=== PATIENT | male | born 1995 | race Caucasian/White ===

== ENCOUNTER 2022-08-02 16:50 | Emergency (ER) | payer OTHER, SELFPAY ==
[2022-08-02 16:54] VITALS: BP 152/53; PULSE 68; RESP 20; TEMP 36.7; O2SAT 98
--- NOTE | 2022-08-02 16:55 | ED.URI ---
HPI - URI/Sore Throat General Chief Complaint: Upper Respiratory Infection Stated Complaint: flu symptoms Time Seen by Provider: 08/02/22 16:55 Source: patient and RN notes reviewed History of Present Illness HPI Narrative: Patient is a 26-year-old male who presents to the Urgent Care with complaints of a headache. Patient states he has also had several bowel movements today but nothing like diarrhea. 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 Patient states that he has tried ibuprofen without success. No other acute complaints. No acute distress noted. Patient aware of the plan of care. Some parts of this dictation were generated by voice recognition software and may contain typographical and/or grammatical inaccuracies. Related Data Home Medications Medication Instructions Recorded Confirmed No Home Medications 08/02/22 08/02/22 Allergies Allergy/AdvReac Type Severity Reaction Status Date / Time Penicillins Allergy Unknown Verified 08/02/22 16:59 Review of Systems Review of Systems: CONSTITUTIONAL: Denies fever, chills, or sweats. EYES: Denies visual changes, redness, or discharge. ENT: Denies rhinorrhea, congestion, sore throat, or otalgia. CARDIOVASCULAR: Denies chest pain, palpitations, or edema. RESPIRATORY: Denies cough or dyspnea. GASTROINTESTINAL: Denies abdominal pain, nausea, vomiting, or diarrhea. GENITOURINARY: Denies dysuria or hematuria. SKIN: Denies rash or itching. MUSCULOSKELETAL: Denies back pain, joint pain, or myalgia. NEUROLOGIC: Reports of a headache All other systems reviewed are negative, except as documented in HPI. PMFSH Comments At the time of my signature, I reviewed and agree with the nursing past medical, surgical, social, and family history. There is no relevant family history pertinent to the patient complaint. Exam Narrative: GENERAL: This is a well-nourished, well-developed patient, in no apparent distress. HEAD: normocephalic, atraumatic. EYES: PERRL. Sclera clear/white. Vision is grossly intact. EARS: External ears normal, auditory canals clear and without drainage, TMs normal without perforation. Hearing grossly intact. NOSE: External nose normal with no obvious nasal discharge, nares without redness, no rhinorrhea. THROAT: Mucous membranes moist, posterior pharynx clear. NECK: Neck supple CARDIOVASCULAR: Regular rate and rhythm RESPIRATORY: Clear to auscultation. Breath sounds equal bilaterally. No wheezes, rales, or rhonchi. GASTROINTESTINAL: Abdomen soft, non-tender, nondistended. Bowel sounds are active. SKIN: warm, intact with no suspicious lesions or rash, good texture and turgor. NEURO: awake, alert, and oriented to person, place and time. There were no obvious focal neurologic abnormalities. EXTREMITIES: No clubbing, cyanosis, or edema. Course Course Level of Care: Express Care Visit Vital Signs Vital signs: Vital Signs Temperature 98.0 F 08/02/22 16:54 Pulse Rate 68 08/02/22 16:54 Respiratory Rate 20 08/02/22 16:54 Blood Pressure 152/53 H 08/02/22 16:54 Pulse Oximetry 98 08/02/22 16:54 Oxygen Delivery Room Air 08/02/22 16:54 Temperature 98.0 F 08/02/22 16:54 Pulse Rate 68 08/02/22 16:54 Respiratory Rate 20 08/02/22 16:54 Blood Pressure 152/53 H 08/02/22 16:54 Pulse Oximetry 98 08/02/22 16:54 Oxygen Delivery Room Air 08/02/22 16:54 Reviewed- Patient is informed that they may have pre-hypertension or hypertension based on a blood pressure reading in the department. I recommend the patient call the primary care provider listed on their discharge instructions or a physician of their choice this week to arrange follow-up for further evaluation of possible pre-hypertension or hypertension. MDM - URI/Sore Throat MDM Narrative Medical decision making narrative: Advised patient to use
== END 2022-08-02 17:18 | disposition home or self-care (01) ==
PROVIDERS: Emergency Provider Nurse Practitioner Family
DX: R51.9 Headache, unspecified (principal)
CPT/HCPCS: 99202; G0463

== ENCOUNTER 2025-02-12 19:43 | Emergency (ER) | payer OTHER, SELFPAY ==
--- NOTE | ~2025-02-12 | XR_ITS ---
HISTORY: punched a wall, pain medial hand/wrist COMPARISON: None TECHNIQUE: 3 views of the right hand were performed. FINDINGS: No acute fracture is identified. The joint spaces are preserved. The carpal arcs are intact. Mild radiocarpal joint space narrowing with sclerosis of the distal radius is present. Bone mineralization is unremarkable. No significant soft tissue swelling. No radiopaque foreign body is identified. IMPRESSION: No acute fracture or dislocation within the right hand, as detailed above. Reviewed, dictated and finalized at location A.
--- NOTE | ~2025-02-12 | XR_ITS ---
HISTORY: punched a wall, pain medial hand/wrist COMPARISON: None TECHNIQUE: 3 views of the right wrist were performed. FINDINGS: Better seen on the dedicated wrist examination is a possible avulsion fracture of the distal ulnar ma rgin of the hamate bone with adjacent soft tissue swelling. No additional acute fractures are present. The carpal arcs are otherwise intact. Mild radiocarpal joint space narrowing with sclerosis of the distal radius is present. The remaining visualized joint spaces are otherwise preserved. IMPRESSION: Better seen on the dedicated wrist examination is a possible avulsion fracture of the distal ulnar ma rgin of the hamate bone with adjacent soft tissue swelling. Reviewed, dictated and finalized at location A. IMPRESSION: Better seen on the dedicated wrist examination is a possible avulsion fracture of the distal ulnar margin of the hamate bone with adjacent soft tissue melina zee
--- OUTSIDE RECORDS SUMMARY | 2025-02-12 19:46 | XMS_ITS | Clinical Summary ---
Author Organization [facility] Address [address] [place] [address] Care Team Providers Care Staff Electronic Warfare Officer Name Role Phone No, Physician Primary Care Provider [phone] Allergies Active Allergy Reactions Criticality Noted Date Comments Penicillins Unknown 01/08/2022 Medications mupirocin (BACTROBAN) 2 % ointmentIndicat ions:Abrasion Apply topically 2 (two) times a day 22 g Active Additional Information Patient not taking.Reported on 01/07/2025 Active Problems No known active problems Resolved Problems Problem Noted Date Diagnosed Date Resolved Date Appendicitis 01/08/2022 01/26/2022 Encounters Date Type Department Care Team Description 01/07/2025 3:15 PM CDT Office Visit [facility] [place] [address] [place] [address] Deena Madrigal MD Abdominal pain (Primary Dx) from Last 3 Months Surgical History Surgery Date Site/Laterality Comments TONSILLECTOMY APPENDECTOMY 01/08/2022 Medical History Medical History Date Comments PONV (postoperative nausea and vomiting) GERD (gastroesophageal reflux disease) Social History Tobacco Use Types Packs/Day Years Used Date Smoking Tobacco: Every Day Cigarettes 0.5 7 Smokeless Tobacco: Never Tobacco Cessation:Ready to Q uit: Not Asked; Counseling Given: Not Answered Alcohol Use Standard Drinks/Week Comments Not Currently 0 (1 standard drink = 0.6 oz pur e alcohol) AUDIT-C Answer Date Recorded Q1: How often do you have a drink containing alcohol? Never 01/08/2022 Q2: How many drinks containi ng alcohol do you have on a typical day when you are drinking? Patient does not drink Q3: How often do you have si x or more drinks on one occasion? 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 Gender Identity Not on file Sexual Orientation Not on file Obstetrics History Last Filed Vital Signs Vital Sign Reading Time Taken Comments Blood Pressure 116/82 01/07/2025 3:14 PM CDT Pulse 73 01/07/2025 3:14 PM CDT Temperature 36.4 C (97.5 F) 01/07/2025 3:14 PM CDT Respiratory Rate 16 01/07/2025 3:14 PM CDT Oxygen Saturation 96% 01/07/2025 3:14 PM CDT Inhaled Oxygen Concentration - - Weight 103 kg (227 lb) 01/07/2025 3:14 PM CDT Height 190.5 cm (6' 3) 01/07/2025 3:14 PM CDT Body Mass Index 28.37 01/07/2025 3:14 PM CDT Plan of Treatment Health Maintenance Due Date Last Done Comments Depression Screening 1996 Hepatitis C Screening 1996 Varicella Vaccines (1 of 2 - 13+ 2-dose series) 2009 Regular Well Visit/Exam 18-64 2014 Pneumococcal vaccine <65 (1 of 2 - PCV) 09/28/2015 DTaP/Tdap/Td Vaccine (6 - Td or Tdap) 02/19/2022 02/20/2012, 02/28/2003, 04/09/2002, Additional history exists HPV Vaccines (1 - 3-dose SCD M series) 09/28/2023 Influenza Vaccine (#1) 2025 Hepatitis B Screening Completed 02/23/2002 , 1996, 1996 Procedures Procedure Name Priority Date/Time Associated Diagnosis Comments POCT URINALYSIS DIPSTICK Routine 01/07/2025 3:49 PM CDT Abdominal pain from Last 3 Months Results * (ABNORMAL) POCT urinalysis dipstick (01/07/2025 3:49 PM CDT) Color, Urine, POC Yellow Clarity, ur, POC Turbid(A) Clear Glucose, ur, POC Negative Negative Bilirubin, ur, POC Negative Negative Ketones, ur, POC Negative Negative Specific Dexter, POC 1.020 1.003 - 1.030 Blood, ur, POC Negative Negative pH, ur, POC 7.5 5.0 - 8.0 Protein, ur, POC Negative Negative Urobilinogen, urine, POC 0.2 0.2 - 1.0 mg/dL Nitrite, ur, POC Negative Negative Leukocytes, ur, POC Negative Negative Lot Number [id number] Urine 01/07/2025 3:49 PM CDT Deena Madrigal MD POINT OF CARE TEST MARY [facility] Final Result from Last 3 Months Insurance [facility] Advance Directives For more information, please contact: [phone] * Full Code (Latest Code Status on File) Date Activated Date Inactivated Comments 01/08/2022 3:21 AM 01/08/2022 9:54 PM Care Teams Staff Electronic Warfare Officer Relationship Specialty Start Date End Date No, Physician PCP - General 01/07/22
--- OUTSIDE RECORDS SUMMARY | 2025-02-12 19:46 | XMS_ITS | Encounter Summary ---
Author Organization [facility] Address [address] [place] [address] Phone Care Team Providers Care Director Of Event Management Name Role Phone Provider, Unknown Primary Care Provider Unavaila ble Encounter Details Date Type Department Care Team (Late st Contact Info) Description 12/28/2021 Lab Requisition [facility] [address] [place] [id number] Gina Orellana, FORMING ACID DUMPER, LICENSED PHYSICAL THERAPIST [address] [place] [address] Encounter for pre-employment examination Social History Tobacco Use Types Packs/Day Years Used Date Smoking Tobacco: Never Assessed Sex and Gender Information Value Date Recorded Sex Assigned at Not on file Legal Sex Male 1:20 PM CDT Gender Identity Not on file Sexual Orientation Not on file documented as of this encounter Plan of Treatment Not on file documented as of this encounter Procedures Procedure Name Priority Date/Time Associated Diagnosis Comments SARS-COV-2 BY MOLECULAR Routine 12/28/2021 8:00 AM CDT Encounter for pre-employment examination documented in this encounter Results * SARS-COV-2 BY MOLECULAR (12/28/2021 8:00 AM CDT) SARSCOV2 NOT DETECTED (Referen ce Range for this test is Not Detected ) [facility] THERMOFISHER FAST DX 12/29/2021 6:13 AM CDT [facility] Comment:This test was perfor med by a RT-PCR method. Other Non-Phlebotomy Collection / Unknown 12/28/2021 8:00 AM CDT 12/28/2021 1:22 PM CDT Narrative [facility] - 12/29/2021 6:13 AM CDT Authorized Fact Sheets about this test for providers and patients are available at: https://www.fda.gov/medical-devices/mfrvekhjw-qlovnfhqxu-lpyesah-devices/emergen cy-us e-authorizations us Gina Orellana FORMING ACID DUMPER, LICENSED PHYSICAL THERAPIST MICROBIOLOGY - GENE RAL ORDERABLES Final Result [facility] [address] [place] [address], documented in this encounter Visit Diagnoses Diagnosis Encounter for pre-employment examination Health examination of defined subpopulation documented in this encounter Additional Health Concerns Infection Onset Date Last Indicated Resolved Time COVID - 19 12/28/2021 12/28/2021 01/07/2022 12:1 6 AM CDT documented as of this encounter Care Teams Director Of Event Management Relationship Specialty Start Date End Date Provider, Unknown UNKNOWN PCP - General 12/29/21 documented as of this encounter
--- OUTSIDE RECORDS SUMMARY | 2025-02-12 19:46 | XMS_ITS | Clinical Summary ---
Author Organization [facility] Address [address] [place] [address] Phone Care Team Providers Care Remote Operations Producer Name Role Phone Provider, Unknown Primary Care Provider Unavaila ble Allergies Active Allergy Reactions Criticality Noted Date Comments Penicillin G Rash 12/06/2022 Medications fluticasone (FLONASE) 50 MCG/ACT Suspension 1-2 Sprays by Nasal route daily. Use in each nostril as directed. 16 g 3 12/06/2022 Active guar gum (BENEFIBER) Powder Take 1 Tbsp by mouth daily. Active Active Problems Problem Noted Date Diagnosed Date Snoring 12/06/2022 Allergic rhinitis 12/06/2022 Family History Medical History Relation Name Comments No Known Problems Brother 2 No Known Problems Father No Known Problems Mother Cerebral Palsy Sister 2 Relation Name Status Comments Brother 1 Alive Brother 2 Father Alive Mother Alive Sister 1 Alive Sister 2 Social History Tobacco Use Types Packs/Day Years Used Date Smoking Tobacco: Every Day Cigarettes Passive Smoke Exposure: Current Smokeless Tobacco: Never Tobacco Cessation:Ready to Q uit: No; Counseling Given: No Alcohol Use Standard Drinks/Week Comments Yes 0 (1 standard drink = 0.6 oz pur e alcohol) Education Answer Date Recorded What is the highest level of school you have completed or the highest degree you have received? 12th grade 12/06/2022 Sexually Active Control Partners Comments Yes Sex and Gender Information Value Date Recorded Sex Assigned at Not on file Legal Sex Male 1:20 PM CDT Gender Identity Not on file Sexual Orientation Not on file Last Filed Vital Signs Vital Sign Reading Time Taken Comments Blood Pressure 112/68 12/06/2022 10:30 AM CDT Pulse 70 12/06/2022 10:30 AM CDT Temperature 36.7 C (98.1 F) 12/06/2022 10:30 AM CDT Respiratory Rate - - Oxygen Saturation 98% 12/06/2022 10:30 AM CDT Inhaled Oxygen Concentration - - Weight 111.6 kg (246 lb) 12/06/2022 10:30 AM CDT Height 190.5 cm (6' 3) 12/06/2022 10:30 AM CDT Body Mass Index 30.75 12/06/2022 10:30 AM CDT Plan of Treatment Health Maintenance Due Date Last Done Comments Hepatitis C Virus (HCV) Screening 1996 Human Papillomavirus (HPV) Immunization (1 - 3-dose SCDM series) 09/28/2023 SARS-COV-2 Immunization ( season) 2024 Influenza Immunization (#1) 2025 Respiratory Syncytial Virus (RSV) Immunization (Adult) (1 - 1-dose 75+ series) 09/28/2071 Hepatitis B Immunization Completed 002, 1996, 1996 DTaP/Tdap/Td Immunization Discontinued 2011, 02/28/2003, 04/09/2002, Additional history exists TdaP Immunization Completed 02/20/2012 Meningococcal Immunization (ACWY) Aged Out No longer eligible based on patient's age to complete this topic Pneumococcal Immunization Combined Aged Out No longer eligible based on patient's age to complete this topic Rotavirus Immunization Aged Out No lo nger eligible based on patient's age to complete this topic Insurance MEDICAID [place] Care Teams Remote Operations Producer Relationship Specialty Start Date End Date Provider, Unknown UNKNOWN PCP - General 12/29/21
--- NOTE | 2025-02-12 19:47 | ED_ITS ---
HPI - Extremity Injury (Upper) General Chief Complaint: Extremity Injury, Upper Stated Complaint: right hand injury Source: patient Mode of arrival: ambulatory Limitations: no limitations History of Present Illness HPI narrative: 29-year-old male presented for complaint of right hand pain and swelling after he punched a wall today. Says he saw a bump afterwards, and pushed it down. Pain with movement of the little finger. Says he had a bad day and took it out on the garage. He thinks it was a siding wall. Denies numbness, tingling or weakness. Related Data Allergies Allergy/AdvReac Type Severity Reaction Status Date / Time Penicillins Allergy Unknown Verified 02/12/25 20:00 Review of Systems Review of Systems: CONSTITUTIONAL: Denies body aches, fever, chills EYES: Denies visual changes ENT: Denies rhinorrhea, congestion CARDIOVASCULAR: Denies chest pain, palpitations, or edema. RESPIRATORY: Denies cough or dyspnea. SKIN: Denies rash, itching, or wounds. MUSCULOSKELETAL: reports right hand pain NEUROLOGIC: Denies headache, numbness, tingling, or weakness. All systems reviewed & are unremarkable except as noted in HPI and below PMFSH Comments At time of signature, I have reviewed and agree with nursing past medical, surgical, social and family history unless otherwise noted. Please see nursing chart for further information. There is no relevant family history pertinent to the presenting complaint Exam Narrative: GENERAL: Well-appearing CHEST: Speaks in full sentences. No respiratory distress. HEART: Regular rate and rhythm. EXTREMITIES: Right hand swelling and point tenderness to proximal base of 5th metacarpal. Tolerates finger cascade but endorses pain with movement of 5th digit. Right hand has normal strength and sensation, No open wounds, pulse palpable and equal bilaterally, skin warm, dry, pink. Capillary refill less than 3 seconds. SKIN: Warm, dry, no rash. NEURO: Alert and oriented x3. PSYCH: Normal mood and affect Course Course Emergency Course: Patient is aware of diagnosis, understands and agrees to treatment plan. Anticipatory guidance given. Patient agrees to follow-up as directed and is aware of reasons to seek care at the emergency department. Portions of this record may have been created with voice recognition software Level of Care: Express Care Visit Vital Signs Vital signs: Vital Signs Temperature 98.6 F 02/12/25 19:48 Pulse Rate 74 02/12/25 19:48 Respiratory Rate 16 02/12/25 19:48 Blood Pressure 144/75 H 02/12/25 19:48 Pulse Oximetry 99 02/12/25 19:48 Oxygen Delivery Room Air 02/12/25 19:48 Temperature 98.6 F 02/12/25 19:48 Pulse Rate 74 02/12/25 19:48 Respiratory Rate 16 02/12/25 19:48 Blood Pressure 144/75 H 02/12/25 19:48 Pulse Oximetry 99 02/12/25 19:48 Oxygen Delivery Room Air 02/12/25 19:48 Reviewed Procedures Orthopedic Splinting/Casting right hand: OCL: ulnar gutter Pre-Procedure Neuro Vascular Exam: normal Post-Procedure Neuro Vascular Exam: normal Other Orthopedic Equipment: other (sling) MDM - Extremity Injury (Upper) MDM Narrative Medical decision making narrative: Discussed physical exam findings and soft read on imaging. Point tenderness over proximal 5th metacarpal. Shared decision making, Pt declines to wait until the final reading and is agreeable for splint and sling, and will f/u with ortho. Advised supportive measures and signs/symptoms to go to the ER. Pt is appropriate for outpt treatment and f/u. Differential Diagnosis Differential diagnosis: Likely sprain and strain of wrist, fracture of wrist and fracture of hand Discharge Plan Discharge Clinical Impression: Fracture of hand Patient Disposition: Home Condition: Stable Instructions: Hand Fracture (ED), Splint Care (ED) Additional Instructions: Rest, do not use the right hand while it is in the splint. ice and elevate the right hand. Motrin 800mg every 8 hours, as needed, for pain (take with food). Tylenol 1000mg every 8 hours. Keep splint clean, dry and in place. Use garbage bag while showering to keep splint dry. Use sling Go to the ER immediately for increased pain, tingling/numbness, swelling, redness, and fever Follow up with Orthopedic Surgery (Dr Solorio) in 3 days for further evaluation - please call for an appointment. Patient Language: French Prescriptions: New ibuprofen 800 mg tablet 800 mg PO TID PRN (Reason: pain) Qty: 15 0RF Follow-up/Referrals: Georges Alexander MD [Physician] - Ariel Solorio MD [Physician] - PHYSICIAN,BUILDING EQUIPMENT INSPECTOR [Primary Care Provider] - Stand Alone Forms: Work/School Release IP
[2025-02-12 19:48] VITALS: BP 144/75; PULSE 74; RESP 16; TEMP 37; O2SAT 99
== END 2025-02-12 20:43 | disposition home or self-care (01) ==
PROVIDERS: Emergency Provider Nurse Practitioner Family
DX: S62.91XA Unspecified fracture of right hand, initial encounter for closed fracture (principal); W22.8XXA Striking against or struck by other objects, initial encounter
CPT/HCPCS: 29125; 73110; 73130; 99214; A4565; G0463